=== PATIENT | male | born 1965 | race Caucasian/White ===

== ENCOUNTER → 2021-08-03 | Outpatient (CLI) | payer OTHER ==
[~2021-08-03] MED LIST: ADVIL LIQUI-GE200 MG PO; DIPHENHIST50 MG PO; DITROPAN XL10 M1 PO; DUONEB 2.5-0.5 M3 ML INH; FLOMAX0.4 MG PO; LEVOTHYROXINE75 MC1 PO; LIPITOR 10 MG10 M1 PO; MEDROLDOSEPACK PO; METFORMIN HCL500 M3 PO; PENICILLIN V P500 MG PO; PEPCID20 MG PO; PREDNISONE 10 M10 MG PO; PROTONIX 20 MG20 MG PO; PROTONIX40 M2 PO; SUDAFED30 MG PO; TRIAMCINOLONE A80 G2 TOP
== END ==
LOC: M.LAB 12:42
PROVIDERS: ATTEND Student in an Organized Health Care Education/Training Program
DX: Z01.812 Encounter for preprocedural laboratory examination (principal); Z20.822 Contact with and (suspected) exposure to COVID-19

== ENCOUNTER 2021-08-04 08:26 | Observation (INO) | payer OTHER ==
[~2021-08-04] VITALS: Ht 175.3 cm; Wt 126.1 kg
--- NOTE | ~2021-08-04 | H ---
[address] [address] HISTORY AND PHYSICAL Name: THEODORE DUMONT Room: [address] Tricia Bianchi#: [id number] Admission: 08/04/21 Attend Phys: Meño Bonilla, JESSICA Discharge: 08/05/21 Date of : 67 Report #: [id number] THIS REPORT FOR: cc: Jon Harkins Vincent R. DO [facility],Medical Records Staff ~ Please refer to the History and Physical performed in the physician's office. By: 0642Medical Records Staff AKIRA /IRAIS
[2021-08-04 08:49] LABS: HEMATOCRIT 47.5 % (42.0-52.0); HEMOGLOBIN 15.6 gm/dL (14.0-18.0); MCH 28.2 pg (26.0-34.0); MCHC 32.8 g/dL (28.0-37.0); MPV 8.9 fl. (7.2-11.1); RBC 5.52 mil/uL (4.50-6.00); RDW-CV 15.5 % (10.5-14.5); WBC 9.2 thou/uL (4.0-11.0)
[2021-08-04 09:10] LABS: CALCIUM 9.1 mg/dL (8.5-10.1); POTASSIUM 4.1 mmol/L (3.5-5.1)
[2021-08-04 16:09] VITALS: BP 106/66
[2021-08-04 20:09] VITALS: BP 105/64
[2021-08-05 04:00] VITALS: BP 120/75
[2021-08-05 08:00] VITALS: BP 121/76
--- NOTE | 2021-08-05 09:51 | NUR ---
PT IS ABLE TO COMMUNICATE HIS NEEDS TO STAFF EFFECTIVELY. CURRENT PAIN MEDICATION REGIMEN HAS BEEN ADEQAUTE FOR CONTROLLING HIS PAIN UP TO 0700 THIS MORNING. POSSIBLE DISCHARGE TODAY. PT DID WEAR HIS ABD BINDER AND SCDs FOR THE ENTIRE ORGANIC CHEMIST. FELICIANO DRAIN PATENT OF 0700 THIS MORNING.
[2021-08-05 12:08] LABS: ABSOLUTE EOSINOPHILS 0.2 thou/uL (0.0-0.7); ABSOLUTE LYMPHOCYTES 0.8 thou/uL (0.8-5.3); ABSOLUTE NEUTROPHILS 7.5 thou/uL (1.6-8.1); BASOPHILS 0.3 %; CALCIUM 8.1 mg/dL (8.5-10.1); CREATININE 0.8 mg/dL (0.6-1.3); EOSINOPHILS 2.2 %; HEMATOCRIT 42.4 % (42.0-52.0); HEMOGLOBIN 13.9 gm/dL (14.0-18.0); LYMPHOCYTES 8.2 %; MCH 28.3 pg (26.0-34.0); MCHC 32.8 g/dL (28.0-37.0); MCV 86.1 fL (80.0-100.0); MONOCYTES 10.6 %; MPV 9.1 fl. (7.2-11.1); NUCLEATED RBCS 0 /100WBC; PLATELET COUNT* 163 thou/uL (150-400); POLYS 78.7 %; POTASSIUM 4.1 mmol/L (3.5-5.1); RBC 4.92 mil/uL (4.50-6.00); RDW-CV 14.9 % (10.5-14.5); WBC 9.5 thou/uL (4.0-11.0)
[2021-08-05 13:04] VITALS: BP 121/76
--- NOTE | 2021-08-05 13:06 | NUR ---
Nutrition: Pt admitted with hernia repair. Seen for consult for protocol. Pt is at usual wt, 175#. He was eating lunch during visit but requested a cheeseburger b/c he doesn't like the food. TRACTOR OPERATOR HELPER came in and gave him a menu at this point. RD got him a cheeseburger. He is on regular diet. He siad his appetite is fine. Meds, labs, hx reviewed. Pt had no questions on nutrition. Low risk.
--- NOTE | 2021-08-05 20:50 | OP ---
[address] [address] OPERATIVE REPORT Name: THEODORE DUMONT Room: [address] Tricia Bianchi#: [id number] Admission: 08/04/21 Attend Phys: Meño Bonilla II Discharge: 08/05/21 Date of : 67 Report #: [id number] THIS REPORT FOR: cc: Jon Harkins,Meño Vasquez III, DO ~ cc: Jon Harkins DO DATE OF SURGERY: 08/04/2021 PREOPERATIVE DIAGNOSIS: Recurrent incisional hernia with incarcerated bowel. POSTOPERATIVE DIAGNOSIS: Recurrent incisional hernia with incarcerated bowel. PROCEDURES PERFORMED: Open recurrent incarcerated hernia repair with retrorectus mesh placement and release of rectus posterior sheath with advancement flap. PRIMARY SURGEON: Meño Bonilla DO TRIAL EXAMINER: Noah Kenean, PGY-1. SECOND IMMIGRATION ATTORNEY: MS Theodore3. COMPLICATIONS: None. ESTIMATED BLOOD LOSS: 100 mL FLUIDS: 1500 mL INDICATIONS: The patient is a 55-year-old male with history of neurofibromatosis and diabetes that presented to my clinic with complaints of a painful umbilical bulge. He was found on recent imaging by his primary care provider to have a bowel containing umbilical hernia. After obtaining his history, this was recurrent. He had a primary repair and a small bowel adhesiolysis and possible small bowel resection due to an obstruction. He was informed of the risks and benefits of open hernia repair with risks including but not limited to bleeding, infection, bowel injury, mesh complications including mesh infection and need for explantation. He understood this and decided to proceed with surgery. TECHNIQUE: After an informed consent was obtained, the patient was brought to the operating room and placed in supine position. SCDs were on and running. Preoperative antibiotics were given. General anesthesia was administered with an ET tube. The patient was prepped and draped in the usual sterile fashion. A surgical pause was held to confirm proper patient, [place] [address] OPERATIVE REPORT Name: THEODORE DUMONT Maurilio Room: [address] Tricia Qiu.#: [id number] Admission: 08/04/21 Attend Phys: Meño Bonilla II Discharge: 08/05/21 Date of : 67 Report #: [id number] incision around the umbilical skin was made to completely excise the umbilical skin. This was made with a 15 blade. Dissection was carried through the subcutaneous fat using cautery. The hernia sac was identified with blunt dissection and blunt finger dissection was used to sweep this away from the surrounding subcutaneous tissue. Adhesions from the hernia sac to the subcutaneous fat were incised using cautery with care to stay away from the hernia sac. This was performed circumferentially until the hernia defect was identified and the fascia was encountered. We slightly extended the fascial defect about 1 cm superiorly in order to get intraperitoneal and ensure that we were at the fascial edge. This was performed by opening the fascia using cautery, protecting the hernia sac behind my finger. At this point, we opened the hernia sac and inspected the contents. The small bowel that was contained within, appeared normal. There was no ischemia, no injury, no compromise. Adhesions to the hernia sac were taken down with a combination of careful cautery as well as with Metzenbaum scissors. Once completely detached from the sac, the intraabdominal contents were returned to the abdomen. The hernia sac was excised circumferentially and handed off as specimen. We then grasped the edges of our fascia with Kochers. We decided upon a retrorectus repair. The fascia was elevated laterally. An incision using cautery in the posterior rectus sheath through the peritoneum was created 1 cm off of the midline fascia. This plane was confirmed by visualizing the rectus muscle fibers. This was extended superiorly as well as inferiorly in a vertical fashion. We began on the left side with this. I then switched to the patient's right side and we similarly developed a flap. We then connected the right and left preperitoneal fascial plane at the cranial aspect of the fascial defect by elevating the anterior fascia with a Ce and then carefully dissecting in the retrorectus space across and disconnecting the insertion of the posterior rectus on the midline. This released well and allowed a generous retrorectus space. Blunt dissection with a finger was used to sweep down the few adhesions from the rectus muscle to the posterior sheath. The neurovascular bundles were identified on both sides and spared. Once this was performed, we connected the planes inferiorly by detaching the posterior attachment of the rectus sheath to the midline. We then closed the posterior rectus sheath after this was well advanced to the midline using running 2-0 PDS from the top and from the bottom. Once this was completely closed, we selected a ProGrip 15 x 9 cm polyester mesh. This was trimmed to 14 x 9 cm in size, 14 in the superior to inferior defect. The original hernia defect was measured and was approximately 6 x 6 cm. We then placed the mesh into the retrorectus space and had excellent deployment of the mesh with good opposition to the tissue. It was well fixed with the ProGrip hooks. We then placed a 15-Ivorian FELICIANO through the left rectus muscle and laid this on top of the mesh to prevent seroma. The anterior fascia was then closed in a running fashion using 0 PDS and a single continuous running suture. Once this was closed, we closed the subcutaneous fat and tissue in layered fashion using 3-0 Vicryl. Skin was closed using rox. The drain was secured using a 3-0 nylon. Wounds were cleansed and dressed with a [place] [id number] OPERATIVE REPORT Name: THEODORE DUMONT Room: [address] Tricia Bianchi#: [id number] Admission: 08/04/21 Attend Phys: Meño Bonilla II Discharge: 08/05/21 Date of : 67 Report #: [id number] impregnated. No complications. The patient tolerated the procedure well. He was transferred to the PACU where he received bilateral TAP blocks. The patient was emerged from anesthesia and transferred and he was stable. All counts were correct as well. <ELECTRONICALLY SIGNED> By: Meño Bonilla III, DO 08/05/212049 1350 1515Cjolie Bonilla III, DO /nt
--- NOTE | 2021-08-06 13:08 | PATH ---
[address] [address] PATHOLOGY RPT PROCEDURE Name: THEODORE DUMONT Room: [address] Tricia Bianchi#: [id number] Admission: 08/04/21 Date of : 67 Discharge: 08/05/21 Report #: [id number] Path Case #: [id number] [facility] Accession Number: [id number] . 01 Material submitted: . hernia - HERNIA SAC AND UMBILICAL SKIN . 01 Clinical history: . HERNIA REPAIR, INCISIONAL . 02 Diagnosis: Hernia sac and umbilical skin: - Benign skin and mesothelial-lined fibromembranous/fibrofatty tissue with fibrosis and mild chronic inflammation. (NILSA:pit; 08/06/2021) QTP 08/06/2021 1145 Local . 02 Electronically signed: . Allan Smith MD, Pathologist NPI- [id number] . 01 Gross description: . Fixative: Formalin Labeled: Hernia sac and umbilical skin Specimen received: 3 fibrofatty rubbery irregular tissues, one of which displays an attached ellipse of rangel skin (6.4 x 4.9 cm). Dimensions: aggregating 10.9 x 9.5 x 2.4 cm Abnormalities: The epidermis displays a central brown ill-defined area of discoloration (0.5 x 0.4 cm) that comes to within 3.6 cm from the nearest tip, 4.0 cm from the opposing tip, 2.0 cm from the nearest edge margin and 2.4 cm from the opposing edge margin. Club Waiter/Waitress sections are submitted in 3 cassettes with the area of discoloration entirely submitted in A1. (AGUA CALIENTE; 08/05/2021) DKA/DKA 08/05/2021 1326 Local . 02 Pathologist provided ICD-10: K43.2 . 02 CPT . 318582 Specimen Comment: A courtesy copy of this report has been sent to [phone] Specimen Comment: [phone] Specimen Comment: Report sent to / DR BARRAZA Performed at: [address] [facility], [place] [id number] MD Wes Yancey MD Phone: [phone] [place] [address] PATHOLOGY RPT PROCEDURE Name: THEODORE DUMONT Room: [address] Tricia Bianchi#: [id number] Admission: 08/04/21 Date of : 67 Discharge: 08/05/21 Report #: [id number] Path Case #: [id number] Performed at: 02 [facility] [address], [place], [place] [id number] MD Allan Smith MD Phone: [phone]
== END 2021-08-05 14:19 | disposition home or self-care (01) ==
LOC: M.SUR 08:26 → M.TBA 14:40 → M.SUR 15:15 → M.2W 18:40
PROVIDERS: Anesthesiology; ADMIT Student in an Organized Health Care Education/Training Program; ATTEND Student in an Organized Health Care Education/Training Program
DX: K43.0 Incisional hernia with obstruction, without gangrene (principal); Z79.899 Other long term (current) drug therapy